=== PATIENT | female | born 1990 | race Two or more races ===

== ENCOUNTER 2016-09-04 19:12 | Emergency (ER) | payer OTHER ==
[2016-09-04] MEDS ORDERED: oxyCODONE/Acetamin 5/325 MG* TAB PO ONE (19:37)
--- NOTE | 2016-09-04 20:41 | RAD ---
INDICATION: Elbow pain. Evaluate for forearm fracture COMPARISON: Elbow same date TECHNIQUE: AP and lateral views were obtained. FINDINGS: There is no acute forearm fracture. There is dislocation at the elbow. There is a joint effusion. IMPRESSION: NO ACUTE FRACTURE IS IDENTIFIED. ELBOW DISLOCATION.
--- NOTE | 2016-09-04 20:41 | RAD ---
INDICATION: Right elbow dislocation. Fall. COMPARISON: None TECHNIQUE: 2 views were obtained. Positioning is limited due to the nature of the injury FINDINGS: There is posterior dislocation at the elbow. There is no associated fracture. The elbow is in partial flexion on both views. There is no effusion. IMPRESSION: POSTERIOR DISLOCATION OF THE ELBOW.
[2016-09-04] MEDS ORDERED: fentaNYL* 50 MCG/ML 2 ML VIAL (100 MCG VIAL) ONE (21:00)
[2016-09-04] MEDS ORDERED: Midazolam* 1 MG/ML 10 ML VIAL (10 MG) ONE (21:00)
[2016-09-04] MEDS ORDERED: Flumazenil* 0.1 MG/ML 5 ML MDV ONE (21:01)
[2016-09-04] MEDS ORDERED: Naloxone* 0.4 MG/ML 10 ML VIAL ONE (21:01)
[2016-09-04] MEDS ORDERED: fentaNYL* 50 MCG/ML 2 ML VIAL (100 MCG VIAL) IV SLOW PU ONE (21:34)
[2016-09-04] MEDS ORDERED: Midazolam* 1 MG/ML 5 ML VIAL (5 MG) SLOW PUSH ONE (21:34)
--- NOTE | 2016-09-04 22:13 | RAD ---
INDICATION: Dislocation with subsequent reduction COMPARISON: Right elbow same date TECHNIQUE: AP, lateral, and oblique views were obtained. FINDINGS: There is satisfactory reduction. There is a tiny avulsion fracture from the lateral epicondyle. No other fractures are evident. There is a small joint effusion. IMPRESSION: SATISFACTORY REDUCTION. TINY AVULSION FRACTURE FROM THE LATERAL EPICONDYLE.
[2016-09-04 22:42] VITALS: BP 131/94
--- NOTE | 2016-09-05 00:05 | ED ---
Cali Duncan Matthew, scribed for JuanitzelGene on 09/04/16 at 2024 . Upper Extremity Pain - HPI Summary HPI Summary: A 26 y/o female presents to the ED with right elbow pain since 18:00. The pain is rated 6/10 in severity. The patient was climbing when she fell on the right side of her body hitting her elbow. Associated symptoms include inability to move the right hand and swelling. The patient denies LOC, chest pain, abdominal pain, and back pain. PMHx is negative. - History of Current Complaint Chief Complaint: EDExtremityUpper Stated Complaint: RIGHT ELBOW PAIN Time Seen by Provider: 09/04/16 19:23 Hx Obtained From: Patient Mechanism Of Injury: Fall From Height Of: Onset/Duration: Started Hours Ago, Traumatic, Still Present Timing: Constant Severity Initially: Moderate Severity Currently: Moderate Pain Location: Elbow - right Aggravating Factor(s): Movement Alleviating Factor(s): Nothing Associated Signs & Symptoms: Positive: Swelling. Negative: Chest Pain, SOB, Back Pain PMH/Surg Hx/FS Hx/Imm Hx Previously Healthy: Yes Endocrine/Hematology History: Denies: Hx Diabetes Infectious Disease History: No Infectious Disease History: Denies: Traveled Outside the [place] in Last 30 Days - Family History Known Family History: Negative: Cardiac Disease, Hypertension, Diabetes - Social History Alcohol Use: Rare Substance Use Type: Reports: None Smoking Status (MU): Never Smoked Tobacco Review of Systems Constitutional: Negative Eyes: Negative ENT: Negative Cardiovascular: Negative Respiratory: Negative Gastrointestinal: Negative Negative: Abdominal Pain Genitourinary: Negative Positive: Myalgia - right elbow pain , Decreased ROM - right elbow and right hand , Edema - right elbow Skin: Negative Neurological: Negative Psychological: Normal All Other Systems Reviewed And Are Negative: Yes Physical Exam Triage Information Reviewed: Yes Vital Signs On Initial Exam: Initial Vitals Temp Pulse Resp BP Pulse Ox 98.1 F 73 16 123/83 98 09/04/16 19:26 09/04/16 19:26 09/04/16 19:26 09/04/16 19:09/04/16 19:26 Vital Signs Reviewed: Yes Appearance: Positive: Well-Appearing, No Pain Distress Skin: Positive: Warm, Skin Color Reflects Adequate Perfusion, Dry Head/Face: Positive: Normal Head/Face Inspection Eyes: Positive: EOMI, KARIN ENT: Positive: Normal ENT inspection Neck: Positive: Supple, Nontender Respiratory/Lung Sounds: Positive: Clear to Auscultation, Breath Sounds Present Cardiovascular: Positive: RRR Abdomen Description: Positive: Nontender, Soft Bowel Sounds: Positive: Present Musculoskeletal: Positive: Other - Tenderness over the right elbow /w edema; restricted ROM of the right elbow; No neurovascular deficit noted. Neurological: Positive: Normal, Sensory/Motor Intact, Alert, Oriented to Person Place, Time Psychiatric: Positive: Normal, Affect/Mood Appropriate Procedures - Splinting Location: RT Arm Hand-Made Type: fiberglass Splint: 2FT Posterior Splint Pre-Proc Neuro Vasc Exam: normal Post-Proc Neuro Vasc Exam: normal - Joint Reduction Conscious Sedation: Yes - fentanyl and versed were used during the reduction. Reduction Attempts: 1 Post Joint Reduction Film: joint reduced - Traction; counter traction Diagnostics - Vital Signs Vital Signs Temp Pulse Resp BP Pulse Ox 09/04/16 19:26 98.1 F 73 16 123/83 98 - Laboratory Lab Statement: Any lab studies that have been ordered have been reviewed, and results considered in the medical decision making process. - Radiology Forearm XR Xray Interpretation: Positive (See Comments) - IMPRESSION: NO ACUTE FRACTURE IS IDENTIFIED. ELBOW DISLOCATION. Radiology Interpretation Completed By: Radiologist Elbow XR Xray Interpretation: Positive (See Comments) Radiology Interpretation Completed By: Radiologist RT Elbow XR Xray Interpretation: Positive (See Comments) - IMPRESSION: SATISFACTORY REDUCTION. TINY AVULSION FRACTURE FROM THE LATERAL EPICONDYLE. Radiology Interpretation Completed By: Radiologist Course/Dx - Course Assessment/Plan: A 26 y/o female presents to the ED with right elbow pain since 18:00. RT elbow XR showed elbow dislocation. The second elbow XR showed a tiny avulsion fracture from the lateral epicondyle. The elbow was reduced and verified with XR. The patient will be discharged home and follow-up with Dr. Amaral on Thursday09/09/16. - Diagnoses Provider Diagnoses: Elbow dislocation, Right lateral epicondyle fracture - Physician Notifications Discussed Care Of Patient With: Dr. Amaral (Ortho) at 21:03 -- Notified of patient's history and after the patient's elbow has been reduced have her follow -up with her office in a week. - Critical Care Time Critical Care Time: 30-74 min Discharge - Discharge Plan Condition: Stable Disposition: HOME Prescriptions: Ibuprofen TAB* [Motrin TAB* 600 MG] 600 mg PO Q8H PRN #21 tab PRN Reason: Pain Patient Education Materials: Elbow Dislocation (ED) Referrals: Guy Amaral MD [Medical Doctor] - 09/09/16 Additional Instructions: Please follow-up with Dr. Amraal on 09/09/16. The documentation as recorded by the Cali barker Matthew accurately reflects the service I personally performed and the decisions made by Leandra garber Emmanuel.
== END 2016-09-04 22:48 | disposition home or self-care (01) ==
LOC: ED 19:12
DX: S42.431A Displaced fracture (avulsion) of lateral epicondyle of right humerus, initial encounter for closed fracture (principal); W17.89XA Other fall from one level to another, initial encounter; Y93.39 Activity, other involving climbing, rappelling and jumping off; Y92.9 Unspecified place or not applicable
CPT/HCPCS: 24565; 96374; 99285; A9270-GY; J2250; J2310; J3010